=== PATIENT | female | born 1980 | race Caucasian/White ===

== ENCOUNTER 2019-04-07 17:41 | Emergency (ER) | payer OTHER, SELFPAY ==
[2019-04-07 17:45] VITALS: BP 141/91; PULSE 87; RESP 18; TEMP 36.3; O2SAT 98; BMI 28.7
--- NOTE | 2019-04-07 18:07 | ED.ABDPAIN ---
HPI - Abdominal Pain General Chief Complaint: Headache Stated Complaint: headache Time Seen by Provider: 04/07/19 18:06 Source: patient Mode of arrival: Ambulatory Related Data Allergies Allergy/AdvReac Type Severity Reaction Status Date / Time No Known Drug Allergies Allergy Verified 04/07/19 17:55 PFSH Social History Smoking Status: Never smoker Social History Smoking Status: Never smoker Exam Initial Vital Signs Initial Vital Signs: Vital Signs Temperature 97.3 F L 04/07/19 17:45 Pulse Rate 87 04/07/19 17:45 Respiratory Rate 18 04/07/19 17:45 Blood Pressure 141/91 H 04/07/19 17:45 Pulse Oximetry 98 04/07/19 17:45 Course Vital Signs Vital signs: Vital Signs - 8 hr 04/07/19 17:45 Temperature 97.3 F L Pulse Rate 87 Respiratory Rate 18 Blood Pressure 141/91 H Pulse Oximetry 98
[2019-04-07] MEDS: diphenhydrAMINE 50 MG/ML VIAL IV (20:42)
[2019-04-07] MEDS: METOCLOPRAMIDE 10 MG/2 ML INJ IV (20:42)
[2019-04-07] MEDS: KETOROLAC 60 MG/2 ML VIAL 30 MG IV (20:43)
[2019-04-07] MEDS: SODIUM CHLORIDE 0.9% 1,000 ML 1000 ML IV (20:43)
[2019-04-07 21:00] VITALS: BP 103/59; PULSE 96; RESP 18; O2SAT 100
--- NOTE | 2019-04-07 21:22 | ED_ITS ---
HPI - Headache <IBRAHIMA Rivera - Last Filed: 04/07/19 22:12> General Chief Complaint: Headache Stated Complaint: headache Time Seen by Provider: 04/07/19 18:13 Source: patient Mode of arrival: Ambulatory Limitations: no limitations History of Present Illness HPI Narrative: The patient is a 39-year-old female nonsmoker presents with a friend for chief complaint of a headache since last , 8 days ago. She states it got worse today. She complains of photophobia, phonophobia nausea no vomiting. She was taking Excedrin migraine for as well as ibuprofen. She denies any fevers chest pain shortness of breath confusion thunderclap sensation or fever. She states that the pain is behind her left eye, radiating around her head. Related Data Previous Rx's Medication Instructions Recorded ketorolac 10 mg PO TID PRN #15 tab 04/07/19 ondansetron 4 mg PO Q6H PRN #20 tab 04/07/19 Allergies Allergy/AdvReac Type Severity Reaction Status Date / Time No Known Drug Allergies Allergy Verified 04/07/19 17:55 Review of Systems <IBRAHIMA Rivera - Last Filed: 04/07/19 22:12> Review of Systems Narrative: GENERAL: Denies chills, fatigue, malaise, fever, sweats. HEENT: Denies sinus pain, ear pain, sore throat, difficulty swallowing, dizziness. RESPIRATORY: Denies dyspnea, cough, wheezing, hemoptysis, sputum. CARDIOVASCULAR: Denies chest pain, palpitations, orthopnea, edema, GASTROINTESTINAL: See HPI : Denies dysuria, frequency, incontinence, hematuria, urinary retention. MUSCULOSKELETAL: denies weakness, joint pain, or bony pain SKIN: Denies rash, skin lesions, or other NEUROLOGIC: See HPI PSYCHIATRIC: No concerning psychosocial issues. 12 point review of systems is negative except for those stated above Patient History <IBRAHIMA Rivera - Last Filed: 04/07/19 22:12> Medical/Surgical History Social History Smoking Status: Never smoker Family/Social History Social History Smoking Status: Never smoker alcohol intake frequency: holidays/special occasions only Substance Use Type: does not use Exam <IBRAHIMA Rivera - Last Filed: 04/07/19 22:12> Narrative Exam Narrative: GENERAL: This is a well-nourished, well-developed patient, appears uncomfortable HEAD: Atraumatic. Normocephalic. No temporal or scalp tenderness. EYES: Pupils equal round and reactive. Extraocular motions intact. No scleral icterus. No injection or drainage. ENT: Nose without bleeding, purulent drainage or septal hematoma. Throat without erythema, tonsillar hypertrophy or exudate. Uvula midline. Airway patent. NECK: Trachea midline. No JVD or lymphadenopathy. Supple, nontender, no meningeal signs. CARDIOVASCULAR: Regular rate and rhythm RESPIRATORY: Clear to auscultation. Breath sounds equal bilaterally. No wheezes, rales, or rhonchi. No cough. No increased respiratory effort. no accessory muscle use. GASTROINTESTINAL: Abdomen soft, non-tender, nondistended. No hepato- splenomegaly, or palpable masses. No guarding. Active bowel sounds all 4 quadrants. EXTREMITIES: No clubbing, cyanosis, or edema. No joint tenderness, effusion, or edema noted. BACK: Nontender without deformity or crepitance. No flank tenderness. NEURO: AOx3. Strength is equal upper and lower extremities bilaterally. Stable gait. Clear speech. Cranial nerves grossly intact SKIN: No rash or erythema. Initial Vital Signs Initial Vital Signs: Vital Signs Temperature 97.3 F L 04/07/19 17:45 Pulse Rate 87 04/07/19 17:45 Respiratory Rate 18 04/07/19 17:45 Blood Pressure 141/91 H 04/07/19 17:45 Pulse Oximetry 98 04/07/19 17:45 <Jeannine Pickens DO - Last Filed: 04/08/19 07:37> Initial Vital Signs Initial Vital Signs: Vital Signs Temperature 97.3 F L 04/07/19 17:45 Pulse Rate 87 04/07/19 17:45 Respiratory Rate 18 04/07/19 17:45 Blood Pressure 141/91 H 04/07/19 17:45 Pulse Oximetry 98 04/07/19 17:45 Course <IBRAHIMA Rivera - Last Filed: 04/07/19 22:12> Orders Ordered: Discontinued Medications Dexamethasone (Decadron) 10 mg IV NOW ONE Stop: 04/07/19 21:28 Last Admin: 04/07/19 21:45 Dose: 10 mg Documented by: MMERKEL Diphenhydramine HCl (Benadryl) 50 mg IV NOW ONE Stop: 04/07/19 20:24 Last Admin: 04/07/19 20:42 Dose: 50 mg Documented by: SONAL Sodium Chloride (Normal Saline 0.9%) 1,000 mls @ 1,000 mls/hr IV BOLUS ONE Stop: 04/07/19 21:30 Last Infusion: 04/07/19 20:54 Dose: 0 mls/hr Documented by: Admin: 04/07/19 20:43 Dose: 1,000 mls/hr Documented by: SONAL Ketorolac Tromethamine (Toradol) 30 mg IV NOW ONE Stop: 04/07/19 20:24 Last Admin: 04/07/19 20:43 Dose: 30 mg Documented by: SONAL Metoclopramide HCl (Reglan) 10 mg IV NOW ONE Stop: 04/07/19 20:24 Last Admin: 04/07/19 20:42 Dose: 10 mg Documented by: SONAL Sumatriptan Succinate (Imitrex) 6 mg SUBCUT NOW ONE Stop: 04/07/19 21:37 Last Admin: 04/07/19 21:46 Dose: 6 mg Documented by: SONAL Vital Signs Vital signs: Vital Signs - 8 hr 04/07/19 17:45 Temperature 97.3 F L Pulse Rate 87 Respiratory Rate 18 Blood Pressure 141/91 H Pulse Oximetry 98 <Jeannine Pickens DO - Last Filed: 04/08/19 07:37> Orders Ordered: Discontinued Medications Dexamethasone (Decadron) 10 mg IV NOW ONE Stop: 04/07/19 21:28 Last Admin: 04/07/19 21:45 Dose: 10 mg Documented by: SONAL Diphenhydramine HCl (Benadryl) 50 mg IV NOW ONE Stop: 04/07/19 20:24 Last Admin: 04/07/19 20:42 Dose: 50 mg Documented by: SONAL Sodium Chloride (Normal Saline 0.9%) 1,000 mls @ 1,000 mls/hr IV BOLUS ONE Stop: 04/07/19 21:30 Last Infusion: 04/07/19 20:54 Dose: 0 mls/hr Documented by: Admin: 04/07/19 20:43 Dose: 1,000 mls/hr Documented by: SONAL Ketorolac Tromethamine (Toradol) 30 mg IV NOW ONE Stop: 04/07/19 20:24 Last Admin: 04/07/19 20:43 Dose: 30 mg Documented by: SONAL Metoclopramide HCl (Reglan) 10 mg IV NOW ONE Stop: 04/07/19 20:24 Last Admin: 04/07/19 20:42 Dose: 10 mg Documented by: SONAL Sumatriptan Succinate (Imitrex) 6 mg SUBCUT NOW ONE Stop: 04/07/19 21:37 Last Admin: 04/07/19 21:46 Dose: 6 mg Documented by: SONAL Vital Signs Vital signs: Vital Signs - 8 hr 04/07/19 17:45 Temperature 97.3 F L Pulse Rate 87 Respiratory Rate 18 Blood Pressure 141/91 H Pulse Oximetry 98 MDM - Headache <IBRAHIMA Rivera - Last Filed: 04/07/19 22:12> Lab Data Labs: Point of Care Testing Test Results Negative MDM Narrative Medical decision making narrative: The patient is a 39-year-old female who presents with a chief complaint of a headache. She has no thunderclap sensation, is neurologically intact and her photophobia, phonophobia and nausea is consistent with a migraine. She was given IV fluids, Toradol, Reglan and Benadryl initially. This improved her headache, but not as much as she would like. She was given Imitrex and dexamethasone subsequently. She felt much improved and wanted to go home and sleep. I discussed at length the importance of following up with primary care provider. Discussed not complaining Toradol with any other NSAIDs such as ibuprofen or Aleve. Discussed going back to the emergency department for any acute concerns such as chest pain, shortness of breath, neurological changes etc. Patient has no questions or concerns upon discharge and states understanding of follow-up care as well as return precautions. <Jeannine Pickens DO - Last Filed: 04/08/19 07:37> Lab Data Labs: Point of Care Testing Test Results Negative Discharge Plan Departure Patient Disposition: Home Clinical Impression: Headache Qualifiers: Headache type: unspecified Headache chronicity pattern: acute headache Intractability: not intractable Qualified Code(s): R51 - Headache Discharge Date/Time: 04/07/19 22:27 Instructions: DI for Migraine, DI for Headache Activity Restrictions/Additional Instructions: Please follow up with your primary care provider in the next few days. Please rest and push fluids. I have given you a work note for the next few days. Please do not combine ketorolac with any ibuprofen Aleve or any other NSAIDs. Please come back to emergency department for any acute concerns such as inability keep down fluids, thunderclap sensation, neurological concerns etc. Prescriptions: New ketorolac 10 mg tablet 10 mg PO TID PRN (Reason: pain) Qty: 15 RF: 0 ondansetron 4 mg tablet,disintegrating 4 mg PO Q6H PRN (Reason: nausea and vomiting) Qty: 20 RF: 0
[2019-04-07] MEDS: DEXAMETHASONE 10 MG/ML VIAL IV (21:45)
[2019-04-07] MEDS: SUMAtriptan 6 MG/0.5 ML VIAL SUBCUT (21:46)
[2019-04-07 22:15] VITALS: BP 100/52; PULSE 83; RESP 18; O2SAT 98
== END 2019-04-07 22:27 | disposition home or self-care (01) ==
PROVIDERS: Emergency Provider Nurse Practitioner Family
DX: R51 Headache (principal)
CPT/HCPCS: 81025; 96372; 96374; 96375; 99283; 99284; J1100; J1200; J1885; J2765; J3030

== ENCOUNTER → 2020-06-11 12:49 | Outpatient (CLI) | payer OTHER, SELFPAY ==
--- NOTE | 2020-06-11 | DI.MG.S_ITS ---
BILATERAL DIGITAL SCREENING MAMMOGRAM 3D/2D WITH CAD: 06/11/2020 CLINICAL: Routine screening. Family history of breast cancer. Comparison is made to exam dated: 05/28/2017 mammogram - [facility]. The tissue of both breasts is heterogeneously dense. This may lower the sensitivity of mammography. Current study was also evaluated with a Computer Aided Detection (CAD) system. No significant masses, calcifications, or other findings are seen in either breast. There has been no significant interval change. IMPRESSION: NEGATIVE There is no mammographic evidence of malignancy. A 1 year screening mammogram is recommended. This exam was interpreted at Station ID: [id number]. NOTE: For mammograms, a report in lay terms will be sent to the patient. Approximately 15% of breast malignancies will not be visualized mammographically. In the management of a palpable breast mass, a negative mammogram must not discourage biopsy of a clinically suspicious lesion. Electronically Signed By: Herb Jiménez acr/maliha:06/11/2020 14:44:22 letter sent: Normal Exam ACR BI-RADS Category 1: Negative [id number]
== END ==
PROVIDERS: PCP Family Medicine; Referring Provider Family Medicine; Visit Provider Family Medicine
DX: Z12.31 Encounter for screening mammogram for malignant neoplasm of breast (principal); Z80.3 Family history of malignant neoplasm of breast
CPT/HCPCS: 77063; 77067

== ENCOUNTER → 2020-09-17 09:01 | Outpatient (CLI) | payer OTHER, SELFPAY ==
[2020-09-17] MEDS: COVID-19 VACC #1, MRNA(MOD) 100 MCG/0.5 ML VIAL IM (09:09)
== END ==
PROVIDERS: PCP Family Medicine; Visit Provider Internal Medicine
DX: Z23 Encounter for immunization (principal)
CPT/HCPCS: 0011A; 91301

== ENCOUNTER → 2020-10-16 08:58 | Outpatient (CLI) | payer OTHER, SELFPAY ==
[2020-10-16] MEDS: COVID-19 VACC #2, MRNA(MOD) 100 MCG/0.5 ML VIAL IM (09:06)
== END ==
PROVIDERS: PCP Family Medicine; Visit Provider Internal Medicine
DX: Z23 Encounter for immunization (principal)
CPT/HCPCS: 0012A; 91301